=== PATIENT | female | born 1990 | race Caucasian/White ===

== ENCOUNTER 2020-03-07 18:36 | Emergency (ER) | payer OTHER, BC ==
--- NOTE | 2020-03-07 18:48 | EDM.PDOC ---
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 The patient advised that she does have some tingling in her arm she denies any other injury she denies any recent injuries or falls or anything that can affect her neck or back or her extremities. 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 Denies: Chills, Fever Respiratory: Reports: No Symptoms. Denies: Shortness of Breath Cardiovascular: Reports: No Symptoms. Denies: Chest Pain GI/Abdominal: Reports: No Symptoms. Denies: Abdominal Pain, Nausea, Vomiting Musculoskeletal: Reports: Shoulder Pain. Denies: Neck Pain, Arm Pain, Back Pain Skin: Reports: No Symptoms. Denies: Bruising, Rash, Erythema Neurological: Reports: Tingling. Denies: Headache, Paresthesia, Weakness Psychiatric: Reports: No Symptoms ED EXAM, GENERAL - Physical Exam Exam: See Below Exam Limited By: No Limitations General Appearance: Alert, WD/WN, No Apparent Distress Head: Atraumatic, Normocephalic Neck: Normal Inspection, Supple, Non-Tender, Full Range of Motion Respiratory/Chest: No Respiratory Distress, Lungs Clear, Normal Breath Sounds, Chest Non-Tender Cardiovascular: Normal Peripheral Pulses, Regular Rate, Rhythm, No Edema, No Murmur Peripheral Pulses: 2+: Radial (L), Radial (R) GI/Abdominal: Soft Back Exam: Normal Inspection, Full Range of Motion Extremities: Normal Inspection, Normal Range of Motion (Set pain with range of motion especially abduction to the right shoulder), Normal Capillary Refill. No : Slow Capillary Refill, Joint Swelling, Pallor, Redness Neurological: Alert, Oriented, Normal Cognition, Normal Gait, No Motor/Sensory Deficits Psychiatric: Normal Affect, Normal Mood Skin Exam: Warm, Dry, Intact, Normal Color Course - Vital Signs Text/Narrative:: The patient was evaluated in the emergency department, as the patient is currently and the mechanism of injury does not suggest as well as the physical exam any type of dislocation or fracture on x-ray would not be appropriate at this point. I did discuss this with the patient advised her of this and she agrees. The patient was advised that Tylenol occasionally for pain will be appropriate. She is also advised ice off and on for the first 2 days and then heat after that. The patient is to follow-up with her PCP this week for further valuation and treatment return emergency department sooner if worse or any problems Last Recorded V/S: Last Vital Signs Temp 36.7 C 03/07/20 18:37 Pulse 95 03/07/20 18:37 Resp 18 03/07/20 18:37 BP 150/80 H 03/07/20 18:37 Pulse Ox 100 03/07/20 18:37 Departure - Departure Time of Disposition: 18:55 Disposition: Home, Self-Care 01 Condition: Good Clinical Impression: Right shoulder strain - Discharge Information *PRESCRIPTION DRUG MONITORING PROGRAM REVIEWED*: Not Applicable *COPY OF PRESCRIPTION DRUG MONITORING REPORT IN PATIENT AZEB: Not Applicable Instructions: Muscle Strain, [id number] Referrals: Darcy Pop SHOT BAGGER [Primary Care Provider] - Forms: ED Department Discharge Additional Instructions: Ice off-and-on frequently for 2 days then heat Occasional Tylenol for pain Follow-up with your family doctor this coming week for further evaluation and treatment Return to the emergency department sooner if worse or any problems Sepsis Event Note - Focused Exam Vital Signs: Vital Signs Temp Pulse Resp BP Pulse Ox 03/07/20 18:37 36.7 C 95 18 150/80 H 100 Date Exam was Performed: 03/07/20 Time Exam was Performed: 19:02 - Problem List & Annotations (1) Right shoulder strain SNOMED Code(s): 373324575 Code(s): S46.911A - STRAIN UNSP MUSC/FASC/TEND AT SHLDR/UP ARM, RIGHT ARM, INIT Status: Acute Priority: Medium Current Visit: Yes Qualifiers: Encounter type: initial encounter Qualified Code(s): S46.911A - Strain of unspecified muscle, fascia and tendon at shoulder and upper arm level, right arm , initial encounter - Problem List Review Problem List Initiated/Reviewed/Updated: Yes - Assessment/Plan Plan: As above Patient's past medical history, past surgical history, past family medical history, past social history was reviewed see nurse notes for details
== END 2020-03-07 19:06 | disposition home or self-care (01) ==
LOC: CC.ED 18:36
DX: O9A.212 Injury, poisoning and certain other consequences of external causes complicating pregnancy, second trimester (principal); S46.911A Strain of unspecified muscle, fascia and tendon at shoulder and upper arm level, right arm, initial encounter; Z79.899 Other long term (current) drug therapy; Z3A.15 15 weeks gestation of pregnancy; X58.XXXA Exposure to other specified factors, initial encounter; Y93.F9 Activity, other caregiving; Y92.129 Unspecified place in nursing home as the place of occurrence of the external cause; Y99.0 Civilian activity done for income or pay
CPT/HCPCS: 99283

== ENCOUNTER 2022-03-06 19:37 | Emergency (ER) | payer BC, MEDICAID ==
[2022-03-06] MEDS: Sodium Chloride 0.9% 1,000 ML IV SCH ×2 (19:58→20:31)
[2022-03-06] MEDS: Ondansetron 4 MG/2 ML SDV IVPUSH PRN ×2 (19:58→20:31)
[2022-03-06 20:20] LABS: CHLORIDE,CL 102 mEq/L (98-106); SODIUM,NA 141 mEq/L (136-145)
[2022-03-06] MEDS ORDERED: Ketorolac 30 MG/ML SDV IVPUSH ONE (20:28)
[2022-03-06] MEDS ORDERED: Sodium Chloride 0.9% 1,000 ML IV SCH (20:30)
== END 2022-03-06 23:05 | disposition home or self-care (01) ==
LOC: CC.ED 19:37
DX: R10.31 Right lower quadrant pain (principal); R19.7 Diarrhea, unspecified; Z88.1 Allergy status to other antibiotic agents
CPT/HCPCS: 36415; 74176; 80053; 81003; 81025; 85025; 86140; 96361; 96374; 96375; 99283; 99284-25; J1885; J2405; J7030